=== PATIENT | female | born 1945 | race American Indian/Alaskan Native ===

== ENCOUNTER 2017-11-22 12:18 | Outpatient (CLI) | payer MEDICARE ==
--- NOTE | 2017-11-22 13:02 | Cat Scan Report ---
CT HEAD WITHOUT CONTRAST INDICATION: Posttraumatic headaches. COMPARISON: None similar. FINDINGS: Noncontrast head CT demonstrates normal, symmetric ventricles and sulci without acute or recent infarct, hemorrhage, mass effect or midline shift. No abnormal extra-axial fluid collections. Posterior fossa structures and basilar cisterns appear within normal limits. Symmetric eye globes. Mild bilateral mid ethmoid and imaged maxillary sinus mucosal thickening suspected. Slight right sphenoid sinus disease. Clear remainder imaged paranasal sinuses and mastoid air cells. Intact calvarium. Normal overlying scalp soft tissues. Numerous radiopaque dental material incidentally noted. CONCLUSION: No acute intracranial CT abnormality with possible slight sinusitis, as described. Please correlate. Thank you for the opportunity to participate in this patient's care.
== END 2017-11-22 12:19 | disposition home or self-care (01) ==
LOC: CT 12:18
PROVIDERS: ATTEND Internal Medicine
DX: R51 Headache (principal); J32.8 Other chronic sinusitis
CPT/HCPCS: 70450

== ENCOUNTER 2020-08-05 07:49 | Outpatient (CLI) | payer MEDICARE ==
[2020-08-05 09:14] LABS: Blood Urea Nitrogen 13 mg/dL (7-17)
--- NOTE | 2020-08-05 11:00 | Cat Scan Report ---
CT abdomen w con INDICATION: MAIN. TECHNIQUE: All CT scans at this location are performed using CT dose reduction for ALARA by means of automated e xposure control. COMPARISON: None available. FINDINGS: Lung bases are clear. Cholecystectomy. Liver, spleen, pancreas, kidneys and adrenals are negative. Ab dominal aorta is normal in size. No adenopathy. Appendix is identified and normal, but the distal colon and distal small bowel, as well as pelvic str uctures, are not included on this abdomen only exam. No skeletal lesions. IMPRESSION: 1. Negative abdomen only exam. As described, CT abdomen/pelvis would be necessary to evaluate the dis ramon small bowel, distal colon and pelvic structures. Signer Name: Gera Jules MD Signed: 08/05/2020 10:55 AM Workstation Name: [id number]
== END 2020-08-05 07:50 | disposition home or self-care (01) ==
LOC: CT 07:49
PROVIDERS: ATTEND Internal Medicine
DX: R10.30 Lower abdominal pain, unspecified (principal)
CPT/HCPCS: 36415; 74160; 82565; 84520; Q9967

== ENCOUNTER 2020-12-10 09:18 | Outpatient (CLI) | payer MEDICARE ==
--- NOTE | 2020-12-10 11:34 | Ultrasound Report ---
ULTRASOUND PELVIS INDICATION / CLINICAL INFORMATION: Lower abdominal pain. TECHNIQUE: Transabdominal. Duplex Color Doppler used: No. COMPARISON: None available FINDINGS: UTERUS: Surgically absent. RIGHT ADNEXA: The right ovary is not visualized. No significant adnexal abnormality. LEFT ADNEXA: The left ovary is not visualized. No significant adnexal abnormality. URINARY BLADDER: No significant abnormality. FREE FLUID: None. ADDITIONAL FINDINGS: No evidence of mass, fluid, or other significant abnormality within the left low er quadrant area of concern. IMPRESSION: 1. Prior hysterectomy. Neither ovary is visualized. No significant sonographic abnormality identified . Scribed by: Neisha Oliveira RDMS, RVT Scribed: 12/10/2020 9:53 AM I have reviewed the images, agree with this report, and edited this report as needed. Signer Name: Erick Johnson MD Signed: 12/10/2020 11:29 AM Workstation Name: [id number]
== END 2020-12-10 09:19 | disposition home or self-care (01) ==
LOC: US 09:18
PROVIDERS: ATTEND Internal Medicine
DX: R10.30 Lower abdominal pain, unspecified (principal); Z90.711 Acquired absence of uterus with remaining cervical stump
CPT/HCPCS: 76856